=== PATIENT | male | born 1965 | race Caucasian/White ===

== ENCOUNTER 2018-10-02 06:44 | Emergency (ER) | payer BC ==
[2018-10-02] MEDS ORDERED: Rabies Vaccine Human 2.5 UNITS VIAL IM ONE (08:00)
[2018-10-02] MEDS ORDERED: Adacel (T-DAP) 0.5 ML SYRINGE ONE (08:24)
[2018-10-02] MEDS ORDERED: Triple Antibiotic Oint 1 GM Packet ONE (08:37)
== END 2018-10-02 09:10 | disposition home or self-care (01) ==
LOC: ERS 06:44
DX: S81.831A Puncture wound without foreign body, right lower leg, initial encounter (principal); K21.9 Gastro-esophageal reflux disease without esophagitis; G47.00 Insomnia, unspecified; Z79.899 Other long term (current) drug therapy; W54.0XXA Bitten by dog, initial encounter
CPT/HCPCS: 90376; 90471; 90472; 90675; 90715; 96372

== ENCOUNTER 2018-10-04 06:51 | Emergency (ER) | payer BC ==
[2018-10-04] MEDS ORDERED: Rabies Vaccine Human 2.5 UNITS VIAL IM ONE (07:15)
[2018-10-04 08:06] LABS: #Eosinphils 0.1 thou/uL (0.0-0.7); #Lymphocytes 2.1 thou/uL (1.20-3.40); #Monocytes 0.6 thou/uL (0.11-0.59); #Neutrophils 4.7 thou/uL (1.40-6.50); %Basophils 0.6 % (0.0-1.0); %Eosinophils 1.3 % (0.0-10.0); %Lymphocytes 27.9 % (21.0-51.0); %Monocytes 8.4 % (0.0-10.0); %Neutrophils 61.9 % (42.0-75.0); Hemoglobin 14.2 g/dL (14.0-18.0); Mean Corpuscular HGB CONC 34.1 g/dL (32.0-36.0); Mean Corpuscular Hemoglobin 31.1 pg (27.0-31.0); Mean Corpuscular Volume 91.1 fL (78.0-98.0); Mean Platelet Volume 9.4 fL (7.4-10.4); Platelet Count 166 thou/uL (130-400); RBC Distribution Width 12.6 % (11.5-14.5); Red Blood Cell (RBC) Count 4.57 mill/uL (4.70-6.10); White Blood Cell (WBC) Count 7.6 thou/uL (4.8-10.8)
[2018-10-04 08:22] LABS: ALT (SGPT) 8 U/L (8-55); AST (SGOT) 13 U/L (5-34); Albumin 4.5 g/dL (3.5-5.0); Alkaline Phosphatase 60 U/L (40-150); Anion Gap 16 mmol/L (10-20); BUN (Urea Nitrogen) 11 mg/dL (8.4-25.7); Bilirubin, Total 0.8 mg/dL (0.2-1.2); Calc. Creatinine Clearance 0 mL/min (70-130); Calcium 9.7 mg/dL (7.8-10.44); Carbon Dioxide 23 mmol/L (22-29); Chloride 105 mmol/L (98-107); Estimated GFR-MDRD Greater than 90; Globulin 3.4 g/dL (2.4-3.5); Glucose 106 mg/dL (70-105); Lipase 27 U/L (8-78); Potassium 3.9 mmol/L (3.5-5.1); Protein, Total 7.9 g/dL (6.0-8.3); Sodium 140 mmol/L (136-145)
== END 2018-10-04 09:55 | disposition home or self-care (01) ==
LOC: ERS 06:51
DX: R10.13 Epigastric pain (principal); R19.7 Diarrhea, unspecified; Z29.14 Encounter for prophylactic rabies immune globulin; K21.9 Gastro-esophageal reflux disease without esophagitis; G47.30 Sleep apnea, unspecified; Z79.899 Other long term (current) drug therapy
CPT/HCPCS: 80053; 83690; 84484; 85025; 90471; 90675; 93005

== ENCOUNTER → 2018-10-08 | Day surgery (SDC) | payer BC ==
[~2018-10-08] MED LIST: Rabies Vaccine Human 2.5 UNITS VIAL IM ONE
== END ==
LOC: ERS 16:20
DX: Z23 Encounter for immunization (principal)
CPT/HCPCS: 90471; 90675

== ENCOUNTER 2018-10-15 16:24 | Emergency (ER) | payer BC ==
[2018-10-15] MEDS ORDERED: Rabies Vaccine Human 2.5 UNITS VIAL IM ONE (17:30)
== END 2018-10-15 17:59 | disposition home or self-care (01) ==
LOC: ER/OP 16:24
DX: Z23 Encounter for immunization (principal); K21.9 Gastro-esophageal reflux disease without esophagitis; G47.30 Sleep apnea, unspecified
CPT/HCPCS: 90471; 90675